=== PATIENT | female | born 1995 | race Caucasian/White ===

== ENCOUNTER 2019-02-14 09:43 | Emergency (ER) | payer BC ==
[2019-02-14 10:07] VITALS: BP 130/70
[2019-02-14] MEDS ORDERED: Ondansetron ODT TAB* 4 MG PO ONE (10:27)
--- NOTE | 2019-02-14 10:29 | UC ---
Abdominal Pain Female HPI - HPI Summary HPI Summary: Pt presents with c/o RUQ quadrant pain that began Mgutkv24/27/19, two days after she had an "allergic reaction" on 02/07/19 to a coffee drink at [employer]. Pt states that pain radiates from umbilcus, to RUQ then right flank. Pt has been nauseated since Monday and has had decreased appetite worsening abdominal pain and 1 episode of vomiting this morning. Pty is tearful and states she has RUQ pain that worsens with movement. Pt has hx of pancreatitis - History of Current Complaint Chief Complaint: UCGI Stated Complaint: VICTOR,VOMITING,ABD PAIN Time Seen by Provider: 02/14/19 10:04 Hx Obtained From: Patient Hx Last Menstrual Period: 2 weeks ago ?: No Onset/Duration: Sudden Onset Timing: Constant Severity Initially: Mild Severity Currently: Moderate Pain Intensity: 4 Location: Discrete At: RUQ Radiates: Yes Radiates to: Flank Character: Aching, Colicy, Dull, Sharp Aggravating Factor(s): Movement Alleviating Factor(s): Nothing Associated Signs and Symptoms: Positive: Nausea - Risk Factors Ectopic Risk Factor: Negative Ovarian Torsion Risk Factor: Reproductive Age Allergies/Adverse Reactions: Allergies Allergy/AdvReac Type Severity Reaction Status Date / Time No Known Allergies Allergy Verified 02/14/19 10:07 Home Medications: Home Medications Control DAILY 02/14/19 [History] PMH/Surg Hx/FS Hx/Imm Hx Previously Healthy: Yes - Surgical History Surgical History: None - Family History Known Family History: Positive: Cardiac Disease - Social History Occupation: Student Lives: Dormitory/Roommates Alcohol Use: Weekly Substance Use Type: None Smoking Status (MU): Never Smoked Tobacco Have You Smoked in the Last Year: No - Immunization History Vaccination Up to Date: Yes Review of Systems All Other Systems Reviewed And Are Negative: Yes Constitutional: Positive: Fatigue Skin: Positive: Negative Eyes: Positive: Negative ENT: Positive: Negative Respiratory: Positive: Negative Cardiovascular: Positive: Negative Gastrointestinal: Positive: Abdominal Pain, Nausea Genitourinary: Positive: Negative Motor: Positive: Negative Neurovascular: Positive: Negative Musculoskeletal: Positive: Negative Neurological: Positive: Negative Psychological: Positive: Negative Is Patient Immunocompromised?: No Physical Exam Triage Information Reviewed: Yes Appearance: Ill-Appearing, Pain Distress Vital Signs: Initial Vital Signs Temp 97.9 F 02/14/19 09:59 Pulse 76 02/14/19 09:59 Resp 18 02/14/19 09:59 BP 130/70 02/14/19 09:59 Pulse Ox 99 02/14/19 09:59 Vital Signs Reviewed: Yes Eye Exam: Normal ENT Exam: Normal Neck exam: Normal Respiratory Exam: Normal Cardiovascular Exam: Normal Abdomen Description: Positive: CVA Tenderness (R), Other: - RUQ Bowel Sounds: Positive: Present Musculoskeletal Exam: Normal Neurological Exam: Normal Psychological Exam: Normal Skin Exam: Normal Abd Pain Female Course/Dx - Course Course Of Treatment: I discussed my concern for gallbladder disease, pancreatitis, and other GI disorders and discussed my recommendation to go to closest ER and pt verbalized understanding and agreed to plan of care. - Differential Dx/Diagnosis Differential Diagnosis: Appendicitis, Gall Bladder Disease Provider Diagnosis: Abdominal pain, Right upper quadrant abdominal pain Discharge ED - Sign-Out/Discharge Documenting (check all that apply): Patient Departure All imaging exams completed and their final reports reviewed: No Studies - Discharge Plan Condition: Stable Disposition: HOME-RECOMMEND TO ED Patient Education Materials: Acute Abdominal Pain (ED) Referrals: [facility] [place] [facility] [Outside] No Primary Care Phys,NOPCP [Primary Care Provider] - Additional Instructions: Please go directly to the closest emergency room for further testing and evaluation. - Billing Disposition and Condition Condition: STABLE Disposition: Home-Recommend to ED
== END 2019-02-14 10:37 | disposition home health service (06) ==
LOC: UCCORT 09:43
DX: R10.11 Right upper quadrant pain (principal); R11.2 Nausea with vomiting, unspecified; R53.83 Other fatigue; Z87.19 Personal history of other diseases of the digestive system
CPT/HCPCS: 81003; 87086; 99202; A9270-GY; G0463